=== PATIENT | female | born 1995 | race Hispanic/Latino ===

== ENCOUNTER 2019-04-02 18:57 | Emergency (ER) | payer BC ==
[2019-04-02 19:30] VITALS: PULSE 88; RESP 16
[2019-04-02] MEDS ORDERED: Iohexol 300 100 ML IJ ONE (21:15)
[2019-04-02] MEDS ORDERED: Sodium Chloride 0.9% 50 ML IV ONE (21:15)
[2019-04-02 21:35] LABS: BASO % 0.5 % (0.0-2.0); EOS # 0.1 K/uL (0.0-0.7); EOS % 0.6 % (0.0-4.0); HEMOGLOBIN 13.6 g/dL (12.0-16.0); LYMPH # 1.2 K/uL (1.0-4.3); LYMPH % 12.7 % (20.0-40.0); MEAN CELL VOLUME 90.2 fl (81.0-99.0); MEAN CORPUSCULAR HGB CONC 34.4 g/dL (33.0-37.0); MEAN PLATELET VOLUME 8.2 fl (7.2-11.7); MONO # 0.7 K/uL (0.0-0.8); MONO % 7.1 % (0.0-10.0); NEUT # 7.2 K/uL (1.8-7.0); NEUT % 79.1 % (50.0-75.0); RBC 4.39 Mil/uL (3.80-5.20); WHITE BLOOD COUNT 9.2 K/uL (4.8-10.8)
[2019-04-02 21:38] LABS: BLOOD UREA NITROGEN 14 mg/dl (7-17); CALCIUM 9.6 mg/dL (8.4-10.2); GFR NON-AFRICAN AMERICAN > 60
[2019-04-02 21:41] LABS: SQUAMOUS EPITHIAL 1 /hpf (0-5); URINE BACTERIA RARE (<OCC); URINE BILIRUBIN NEGATIVE (NEGATIVE); URINE BLOOD NEGATIVE (NEGATIVE); URINE CLARITY CLEAR (Clear); URINE COLOR AMBER (YELLOW); URINE GLUCOSE (UA) NEG (NEGATIVE); URINE LEUKOCYTE ESTERASE SMALL Leu/uL (Negative); URINE PROTEIN NEGATIVE (NEGATIVE)
--- NOTE | 2019-04-02 21:54 | ED PDOC ---
HPI: Female Pain Time Seen by Provider: 04/02/19 20:07 Chief Complaint (Nursing): Female Genitourinary Chief Complaint (Provider): Female Genitourinary History Per: Patient History/Exam Limitations: no limitations Onset/Duration Of Symptoms: Days (x 2), Waxing/Waning Quality Of Discomfort: "Pain" Associated Symptoms: Fever, Chills, Back Pain Additional Complaint(s): 24 year old female with a history of anxiety presents to the ED for further evaluation of UTI associated with back pain that began yesterday. Rao reports she developed lower back pain yesterday. When she awoke this morning, she had pain in her right lower back. Patient took 600 mg of Motrin and went to work where she began having headache feeling feverish, chills and persistent back pain. She went to urgent care after work where she was noted to have 102 fever and treated with Tylenol. Patient reports in the urgent care was shaking with chills. UA notable for 75 leukocytes,. She was referred to ER for CT scan and further evaluation if possible kidney infection. Currently continues to have back pain. Denies dysuria, hesitancy and frequency. PMD: none provided Abnormal Vaginal Bleeding: No Past Medical History Reviewed: Historical Data, Nursing Documentation, Vital Signs Vital Signs: Last Vital Signs Temp 99.0 F 04/02/19 19:29 Pulse 88 04/02/19 19:29 Resp 16 04/02/19 19:29 BP 113/69 04/02/19 19:29 Pulse Ox 96 04/02/19 19:29 Primary Care Provider: Procedure,Nonphys - Medical History PMH: Anxiety - Family History Family History: States: Unknown Family Hx - Allergies Allergies/Adverse Reactions: Allergies Allergy/AdvReac Type Severity Reaction Status Date / Time No Known Allergies Allergy Verified 04/02/19 19:28 Review of Systems ROS Statement: Except As Marked, All Systems Reviewed And Found Negative Constitutional: Positive for: Fever, Chills Musculoskeletal: Positive for: Back Pain - Laboratory Results Result Diagrams: 04/02/19 21:12 04/02/19 21:12 Lab Results: Urine Color [place] (YELLOW) 04/02/19 21:15 Urine Clarity Clear (Clear) 04/02/19 21:15 Urine pH 7.0 (5.0-8.0) 04/02/19 21:15 Ur Specific [place] < 1.005 (1.003-1.030) 04/02/19 21:15 Urine Protein Negative mg/dL (NEGATIVE) 04/02/19 21:15 Urine Glucose (UA) Neg mg/dL (NEGATIVE) 04/02/19 21:15 Urine Ketones Negative mg/dL (NEGATIVE) 04/02/19 21:15 Urine Blood Negative (NEGATIVE) 04/02/19 21:15 Urine Nitrate Positive (NEGATIVE) H 04/02/19 21:15 Urine Bilirubin Negative (NEGATIVE) 04/02/19 21:15 Urine Urobilinogen 1.0 mg/dL (0.2-1.0) 04/02/19 21:15 Ur Leukocyte Esterase Small Caleb/uL (Negative) 04/02/19 21:15 Urine RBC (Auto) 1 /hpf (0-3) 04/02/19 21:15 Urine Microscopic WBC 10 /hpf (0-5) H 04/02/19 21:15 Ur Squamous Epith Cells 1 /hpf (0-5) 04/02/19 21:15 Urine Bacteria Rare (<OCC) 04/02/19 21:15 - ECG O2 Sat by Pulse Oximetry: 96 Medical Decision Making Medical Decision Makin:01: Abdomen and Pelvis CT ordered. CBC, BMP, blood and urine cultures. Urine dip, urine preg Urine dip: nitrate +, LE: large U/A: WBCs 10K, LE small, nitrate +. WBCs, BUN/Cr wnl. 2247 CT Abdomen and Pelvis FINDINGS: LUNG BASES: The lung bases appear clear. No pleural effusions are seen. LIVER: Unremarkable. GALLBLADDER AND BILE DUCTS: The gallbladder appears within normal limits. No radioopaque gallstones are seen. No biliary ductal dilatation is evident. PANCREAS: Unremarkable. SPLEEN: Unremarkable. ADRENAL GLANDS: Unremarkable. KIDNEYS, URETERS, AND BLADDER: There is symmetrical excretion of contrast agent by both kidneys which appeared normal in size and position. No identification of perinephric stranding to indicate pyelonephritis. There is no hydronephrosis or hydroureter. No urinary calculi are seen. The urinary bladder appeared normal in size and configuration. There is subtle perivesical haziness noted thought compatible with acute cystitis. STOMACH AND BOWEL: Unremarkable appearance of the stomach. No evidence of bowel obstruction. Mild mucosal wall thickening of the ileal small intestinal tract with fluid in its lumen noted which may be compatible with ileitis. Infectious or inflammatory etiologies are thought most likely. No evidence suggesting colitis. APPENDIX: No evidence of acute appendicitis on CT examination. PERITONEUM: No free fluid. No free air. LYMPH NODES: No lymphadenopathy is evident. REPRODUCTIVE: A circular hypodense device is seen in the upper vaginal canal at the base of the external cervix possibly compatible with a diaphragm. VASCULATURE: No evidence of abdominal aortic aneurysm. BONES: No aggressive appearing osseous lesion. No acute osseous pathology evident. IMPRESSION: 1. Evidence of ileitis. 2. Evidence of acute cystitis. Patient re-evaluated: headache and back pain have improved. Results of CT scan and lab results reviewed with patient and her mother. Bactrim DS 1 tab PO x 1 ordered. Pt advised to not fill prescription for Macrobid and to take Bactrim instead. Stable for d/c home. Scribe Attestation: Documented by Shahrzad Day, acting as a scribe for Emily Brooks PA-C Provider Scribe Attestation: All medical record entries made by the Scribe were at my direction and personally dictated by me. I have reviewed the chart and agree that the record accurately reflects my personal performance of the history, physical exam, me dical decision making, and the department course for this patient. I have also personally directed, reviewed, and agree with the discharge instructions and disposition. Disposition - Clinical Impression Clinical Impression: Acute cystitis - Patient ED Disposition Is Patient to be Admitted: No Counseled Patient/Family Regarding: Studies Performed, Diagnosis, Need For Followup, Rx Given - Disposition Disposition: Routine/Home Disposition Time: 23:00 Condition: IMPROVED Forms: [employer] ([employer])
[2019-04-02] MEDS ORDERED: Tmp-Smz 800 mg-160 mg DS Tab PO STA (23:09)
[2019-04-02 23:27] VITALS: BP 118/74; TEMP 98; O2SAT 100
--- NOTE | 2019-04-03 10:29 | CT ---
Date of service: 04/02/2019 PROCEDURE: CT Abdomen and Pelvis with contrast HISTORY: r/o pyelonephritis COMPARISON: None available. TECHNIQUE: CT scan of the abdomen and pelvis was performed after administration of intravenous contrast. Oral contrast was not administered. Coronal and sagittal reformatted images were obtained. Contrast dose: 90 mL Omnipaque 300 Radiation dose: Total exam DLP = 449.38 mGy-cm. This CT exam was performed using one or more of the following dose reduction techniques: Automated exposure control, adjustment of the mA and/or kV according to patient size, and/or use of iterative reconstruction technique. FINDINGS: LOWER THORAX: The visualized lungs are clear. LIVER: Normal in size with homogeneous enhancement. No gross lesion or ductal dilatation. GALLBLADDER AND BILE DUCTS: Partially contracted. No calcified gallstones, wall thickening or pericholecystic fluid. PANCREAS: Normal in size with homogeneous enhancement. No gross lesion or ductal dilatation. SPLEEN: Normal in size and appearance. ADRENALS: No discrete nodule. KIDNEYS AND URETERS: Normal in size with homogeneous enhancement. No hydronephrosis. No solid mass. VASCULATURE: No aortic aneurysm. There are no aortic atherosclerotic calcifications or mural plaque present. BOWEL: Evaluation of the bowel is limited in the absence of oral contrast. There is a fluid-filled distended stomach with ingested material in it. There are fluid-filled prominent small bowel loops in the right side of the abdomen. The small bowel loops are normal in caliber. The colon is grossly normal in appearance. No bowel wall thickening or obstruction. APPENDIX: Normal appendix. No inflammatory changes in the right lower quadrant. PERITONEUM: No free fluid. No free air. LYMPH NODES: Subcentimeter mesenteric lymph nodes are likely reactive in etiology. BLADDER: A partially decompressed and grossly normal in appearance. REPRODUCTIVE: The uterus is retroverted and normal in size. BONES: No acute fracture. Within normal limits for the patient's age. OTHER FINDINGS: None. IMPRESSION: Fluid-filled mildly dilated small bowel loops in the right abdomen could represent nonspecific acute infectious/inflammatory enteritis. No evidence for bowel obstruction. A preliminary report was provided by [facility].
== END 2019-04-02 23:27 | disposition home or self-care (01) ==
LOC: H.ER 18:57
DX: N30.00 Acute cystitis without hematuria (principal)
CPT/HCPCS: 74177; 80048; 81003; 81025; 85025; 87040; 87086; 96374; 99283; J1885; Q9967

== ENCOUNTER 2019-04-04 12:01 | Emergency (ER) | payer BC ==
[2019-04-04 12:46] VITALS: RESP 18; O2SAT 98
[2019-04-04] MEDS ORDERED: Sodium Chloride 0.9% 1,000 ML IV STA ×2 (13:52→17:31)
[2019-04-04 15:07] LABS: VENOUS BLOOD GAS BASE EXCESS -2.9 mmol/L (0.0-2.0); VENOUS BLOOD GAS PCO2 33 mmHg (40-60); VENOUS BLOOD GAS PO2 26 mm/Hg (30-55); VENOUS BLOOD PH 7.41 (7.32-7.43)
[2019-04-04 15:08] LABS: BASO # 0.1 K/uL (0.0-0.2); BASO % 0.4 % (0.0-2.0); EOS % 0.1 % (0.0-4.0); HEMOGLOBIN 12.7 g/dL (12.0-16.0); LYMPH # 0.9 K/uL (1.0-4.3); LYMPH % 5.8 % (20.0-40.0); MEAN CELL VOLUME 90.6 fl (81.0-99.0); MEAN CORPUSCULAR HEMOGLOBIN 30.5 pg (27.0-31.0); MEAN CORPUSCULAR HGB CONC 33.7 g/dL (33.0-37.0); MONO # 1.2 K/uL (0.0-0.8); NEUT # 13.3 K/uL (1.8-7.0); NEUT % 85.7 % (50.0-75.0); PLATELET COUNT 232 K/uL (130-400); RBC 4.16 Mil/uL (3.80-5.20); RED CELL DISTRIBUTION WIDTH 12.2 % (11.5-14.5); WHITE BLOOD COUNT 15.5 K/uL (4.8-10.8)
[2019-04-04 15:12] LABS: SQUAMOUS EPITHIAL 1 /hpf (0-5); URINE BACTERIA OCC (<OCC); URINE BILIRUBIN NEGATIVE (NEGATIVE); URINE BLOOD NEGATIVE (NEGATIVE); URINE CLARITY CLEAR (Clear); URINE COLOR STRAW (YELLOW); URINE GLUCOSE (UA) NEG (NEGATIVE); URINE LEUKOCYTE ESTERASE NEG Leu/uL (Negative); URINE PROTEIN NEGATIVE (NEGATIVE); URINE UROBILINOGEN 0.2-1.0 mg/dL (0.2-1.0)
[2019-04-04 15:32] LABS: ALB/GLOB RATIO 1.3 (1.0-2.1); ALT/SGPT 29 U/L (9-52); AST/SGOT 22 U/L (14-36); BLOOD UREA NITROGEN 7 mg/dl (7-17); CALCIUM 9.1 mg/dL (8.4-10.2); GFR NON-AFRICAN AMERICAN > 60; LIPASE 45 U/L (23-300)
[2019-04-04 15:35] LABS: LYMPHOCYTE 7 % (20-50); MONOCYTE 8 % (0-10); NEUTROPHIL 85 % (42-75); PLATELET ESTIMATE NORMAL (NORMAL); TOTAL CELLS COUNTED 100
--- NOTE | 2019-04-04 16:38 | ED PDOC ---
HPI: Abdomen Time Seen by Provider: 04/04/19 13:46 Chief Complaint (Nursing): Fever Chief Complaint (Provider): abdominal pain History Per: Patient History/Exam Limitations: no limitations Onset/Duration Of Symptoms: Persistent (x2 days) Current Symptoms Are (Timing): Still Present Additional Complaint(s): 24 year old female with medical history of anxiety, represents to the emergency department with complaints of persistent right flank pain and fever. Patient was evaluated in ED on 04/02/19 for similar symptoms with Rx for antibiotics and Ibuprofen - last use was several hours prior to arrival. Additionally, she reports malaise and mild bodyaches. Otherwise, she denies urinary issues, vomiting, diarrhea, vaginal discharge, sore throat, cough, runny nose, or neck pain. Past Medical History Reviewed: Historical Data, Nursing Documentation, Vital Signs Vital Signs: Last Vital Signs Temp 99.2 F 04/04/19 12:41 Pulse 115 H 04/04/19 12:41 Resp 18 04/04/19 12:41 BP Pulse Ox 98 04/04/19 12:41 Primary Care Provider: FAMILY PROVIDER,NO - Medical History PMH: Anxiety - Family History Family History: States: Unknown Family Hx - Home Medications Home Medications: Ambulatory Orders Medication Instructions Recorded Ibuprofen [Motrin Tab] 600 mg PO Q6 PRN 7 Days tab 04/02/19 Sulfamethoxazole/Trimethoprim 1 tab PO BID #5 tab 04/02/19 [Bactrim DS 800 mg-160 mg] Doxycycline Monohydrate 100 mg PO BID #28 tab 04/04/19 Fluconazole [Diflucan] 150 mg PO ONCE #1 tab 04/04/19 metroNIDAZOLE [Flagyl] 500 mg PO BID #28 tab 04/04/19 - Allergies Allergies/Adverse Reactions: Allergies Allergy/AdvReac Type Severity Reaction Status Date / Time No Known Allergies Allergy Verified 04/02/19 19:28 Review of Systems ROS Statement: Except As Marked, All Systems Reviewed And Found Negative Constitutional: Positive for: Fever ENT: Negative for: Nose Discharge, Throat Pain Respiratory: Negative for: Cough Gastrointestinal: Positive for: Abdominal Pain (right flank). Negative for: Vomiting, Diarrhea Genitourinary Female: Negative for: Dysuria, Hematuria, Vaginal Discharge Musculoskeletal: Negative for: Neck Pain Physical Exam - Reviewed Nursing Documentation Reviewed: Yes Vital Signs Reviewed: Yes - Physical Exam Appears: Positive for: No Acute Distress Head Exam: Positive for: ATRAUMATIC, NORMAL INSPECTION, NORMOCEPHALIC Skin: Positive for: Normal Color Eye Exam: Positive for: Normal appearance ENT: Positive for: Normal ENT Inspection. Negative for: Pharyngeal Erythema Neck: Positive for: Normal Cardiovascular/Chest: Positive for: Regular Rate, Rhythm Respiratory: Positive for: Normal Breath Sounds. Negative for: Respiratory Distress Gastrointestinal/Abdominal: Positive for: Tenderness (right-sided mildly) Pelvic Exam: Positive for: External Exam Normal, Cervicitis, Discharge (heterogeneous discharge), Tender W/Cervical Motion (mild), Tender Uterus (mild). Negative for: Active Bleeding, Blood Back: Positive for: R CVA Tenderness. Negative for: L CVA Tenderness Extremity: Positive for: Normal ROM (upper/lower) Neurological/Psych: Positive for: Awake, Alert, Normal Tone, Symmetric/Intact Strength (5/5). Negative for: Motor/Sensory Deficits - Laboratory Results Result Diagrams: 04/04/19 14:50 04/04/19 14:50 Lab Results: pO2 26 mm/Hg (30-55) L 04/04/19 15:00 VBG pH 7.41 (7.32-7.43) 04/04/19 15:00 VBG pCO2 33 mmHg (40-60) L 04/04/19 15:00 VBG HCO3 21.3 mmol/L 04/04/19 15:00 VBG Total CO2 21.9 mmol/L (22-28) L 04/04/19 15:00 VBG O2 Sat (Calc) 59.4 % (40-65) 04/04/19 15:00 VBG Base Excess -2.9 mmol/L (0.0-2.0) L 04/04/19 15:00 VBG Potassium 3.9 mmol/L (3.6-5.2) 04/04/19 15:00 Sodium 133.0 mmol/L (132-148) 04/04/19 15:00 Chloride 101.0 mmol/L (98-107) 04/04/19 15:00 Glucose 93 mg/dL (65-105) 04/04/19 15:00 Lactate 0.8 mmol/L (0.7-2.1) 04/04/19 15:00 FiO2 21.0 % 04/04/19 15:00 Total Bilirubin 0.5 mg/dl (0.2-1.3) 04/04/19 14:50 AST 22 U/L (14-36) 04/04/19 14:50 ALT 29 U/L (9-52) 04/04/19 14:50 Alkaline Phosphatase 63 U/L (38-126) 04/04/19 14:50 Total Protein 7.1 G/DL (6.3-8.2) 04/04/19 14:50 Albumin 4.0 g/dL (3.5-5.0) 04/04/19 14:50 Globulin 3.1 gm/dL (2.2-3.9) 04/04/19 14:50 Albumin/Globulin Ratio 1.3 (1.0-2.1) 04/04/19 14:50 Lipase 45 U/L (23-300) 04/04/19 14:50 Urine Color Straw (YELLOW) 04/04/19 14:50 Urine Clarity Clear (Clear) 04/04/19 14:50 Urine pH 7.0 (5.0-8.0) 04/04/19 14:50 Ur Specific [place] < 1.005 (1.003-1.030) 04/04/19 14:50 Urine Protein Negative mg/dL (NEGATIVE) 04/04/19 14:50 Urine Glucose (UA) Neg mg/dL (NEGATIVE) 04/04/19 14:50 Urine Ketones 20 mg/dL (NEGATIVE) 04/04/19 14:50 Urine Blood Negative (NEGATIVE) 04/04/19 14:50 Urine Nitrate Negative (NEGATIVE) 04/04/19 14:50 Urine Bilirubin Negative (NEGATIVE) 04/04/19 14:50 Urine Urobilinogen 0.2-1.0 mg/dL (0.2-1.0) 04/04/19 14:50 Ur Leukocyte Esterase Neg Caleb/uL (Negative) 04/04/19 14:50 Urine RBC (Auto) 1 /hpf (0-3) 04/04/19 14:50 Urine Microscopic WBC 2 /hpf (0-5) 04/04/19 14:50 Ur Squamous Epith Cells 1 /hpf (0-5) 04/04/19 14:50 Urine Bacteria Occ (<OCC) H 04/04/19 14:50 - ECG O2 Sat by Pulse Oximetry: 98 (RA) Pulse Ox Interpretation: Normal Medical Decision Making Medical Decision Making: Time: 1352 Initial Plan: rule out sepsis * Labs * IV fluids * UA with culture Time: 1630 --Labs reviewed: (-) lac. elevated WBC at 15. Will obtain US renal/pelvis/tr ansvag for abdominal pain. 172 US renal FINDINGS: RIGHT KIDNEY: Measures: 11.4 x 5.9 x 5.2 cm. No obstructing calculus, hydronephrosis, or renal cyst identified. LEFT KIDNEY: Measures: 12.0 x 5.8 x 5.9 cm. No obstructing calculus, hydronephrosis, or renal cyst identified. OTHER FINDINGS: None. IMPRESSION: Unremarkable renal sonogram. 1725 US Transvag FINDINGS: UTERUS: Measures 3 x 3.7 x 7.3 cm. Normal in size and appearance. No fibroid or other mass lesion seen. ENDOMETRIUM: Measures 2.0 mm in diameter. No ultrasound findings to suggest gestational sac, fluid, debris, mass or polyp or other pathologic process within the endometrium. CERVIX: No cervical abnormality identified. RIGHT OVARY: Measures 1.4 x 2 x 3.3 cm. No solid mass. Normal flow. Multiple subcentimeter follicles. Fluid in the cul-de-sac extends to the right. LEFT OVARY: Measures 1.5 x 1.6 x 3 cm. No solid mass. Normal flow. Multiple subcentimeter follicles. FREE FLUID: Trace free fluid identified in the pelvis/cul de sac. OTHER FINDINGS: None. IMPRESSION: Unremarkable uterus, endometrial echo complex, adnexa. Free fluid identified in the cul-de-sac. US reports reviewed lactate normal chem unremarkable UA unremarkable today re-eval ~1800 No RLQ tenderness Remains afebrile last antipyretic now 6+ hrs ago. Eating pretzels and ice cream in ED, ++hunger 184 Given pelvic exam w mild cervicitis and pelvic fluid on US treat empiric for PID, given dose rocephin and stop bactrim, start doxy and flagyl, one dose diflucan for vaginal candidiasus, has appt upcoming w DIRECTOR ACCOUNT MANAGEMENT, followup cultures, states she received gardisil vaccine. Mom arrived and taking to [facility] [place]. Indications for return ER discussed. Scribe Attestation: Documented by Ana Belle, acting as a scribe for Stef Palm III, DO. Provider Scribe Attestation: All medical record entries made by the Scribe were at my direction and personally dictated by me. I have reviewed the chart and agree that the record accurately reflects my personal performance of the history, physical exam, medical decision making, and the department course for this patient. I have also personally directed, reviewed, and agree with the discharge instructions and disposition. Disposition - Clinical Impression Clinical Impression: Flank pain, PID (acute pelvic inflammatory disease), Fever, Cervicitis, Vaginal candidiasis - Patient ED Disposition Is Patient to be Admitted: No Counseled Patient/Family Regarding: Studies Performed, Diagnosis, Need For Followup, Rx Given - Disposition Referrals: Carlito Patel MD [Staff Provider] - Disposition: Routine/Home Disposition Time: 19:00 Condition: STABLE Additional Instructions: Drink plenty of fluids, return to ER for any worse pain, fever >103, weakness, rash, or any concern. Followup STD cultures in 2-3 days, you will only be called if they are positive. Have [employer]NAGEMENT exam in 7-14 days to assure cervicitis resolves. Prescriptions: Doxycycline Monohydrate 100 mg PO BID #28 tab Fluconazole [Diflucan] 150 mg PO ONCE #1 tab metroNIDAZOLE [Flagyl] 500 mg PO BID #28 tab Instructions: Pelvic Inflammatory Disease, Flank Pain (DC) Forms: [employer] (Pashto)
--- NOTE | 2019-04-04 17:29 | US ---
Date of service: 04/04/2019 PROCEDURE: Ultrasound of the Kidneys HISTORY: R flank pain COMPARISON: CT abdomen and pelvis with contrast performed 04/02/19 TECHNIQUE: Sonogram of the kidneys. FINDINGS: RIGHT KIDNEY: Measures: 11.4 x 5.9 x 5.2 cm. No obstructing calculus, hydronephrosis, or renal cyst identified. LEFT KIDNEY: Measures: 12.0 x 5.8 x 5.9 cm. No obstructing calculus, hydronephrosis, or renal cyst identified. OTHER FINDINGS: None. IMPRESSION: Unremarkable renal sonogram.
--- NOTE | 2019-04-04 17:30 | US ---
Date of service: 04/04/2019 HISTORY: Right flank pain, fever. LMP 02/18/2019. COMPARISON: 04/02/2019. CT abdomen and pelvis. TECHNIQUE: Transabdominal, transvaginal. Real -time technique with 2D, duplex and color Doppler. FINDINGS: UTERUS: Measures 3 x 3.7 x 7.3 cm. Normal in size and appearance. No fibroid or other mass lesion seen. ENDOMETRIUM: Measures 2.0 mm in diameter. No ultrasound findings to suggest gestational sac, fluid, debris, mass or polyp or other pathologic process within the endometrium. CERVIX: No cervical abnormality identified. RIGHT OVARY: Measures 1.4 x 2 x 3.3 cm. No solid mass. Normal flow. Multiple subcentimeter follicles. Fluid in the cul-de-sac extends to the right. LEFT OVARY: Measures 1.5 x 1.6 x 3 cm. No solid mass. Normal flow. Multiple subcentimeter follicles. FREE FLUID: Trace free fluid identified in the pelvis/cul de sac. OTHER FINDINGS: None. IMPRESSION: Unremarkable uterus, endometrial echo complex, adnexa. Free fluid identified in the cul-de-sac.
[2019-04-04] MEDS ORDERED: cefTRIAXone (Rocephin) 1 gm Inj ONE (17:41)
--- NOTE | 2019-04-04 18:25 | RAD ---
HISTORY: fever COMPARISON: None available. TECHNIQUE: Chest, one view. FINDINGS: Examination limited by habitus. LUNGS: Bilateral hilar prominence. No focal consolidation. Please note that chest x-ray has limited sensitivity for the detection of pulmonary masses. PLEURA: No significant pleural effusion identified. No definite pneumothorax . CARDIOVASCULAR: The cardiomediastinal silhouette appears within normal limits of size. No significant atherosclerotic calcification present. OSSEOUS STRUCTURES: No acute osseous abnormality identified. VISUALIZED UPPER ABDOMEN: Unremarkable. OTHER FINDINGS: None. IMPRESSION: Bilateral hilar prominence. No focal consolidation, pleural effusion, or definite pneumothorax.
[2019-04-04 19:23] VITALS: BP 116/77; PULSE 89; TEMP 99
== END 2019-04-04 19:15 | disposition home or self-care (01) ==
LOC: H.ER 12:01
DX: N73.9 Female pelvic inflammatory disease, unspecified (principal); R50.9 Fever, unspecified; B37.3 Candidiasis of vulva and vagina; R10.9 Unspecified abdominal pain
CPT/HCPCS: 71045; 76770; 76830; 76856; 80053; 81003; 81025; 82803; 83690; 83735; 84100; 85025; 87040; 87070; 87086; 87491; 87591; 96361; 96365; 99283; J0696; J7030